=== PATIENT | female | born 1955 ===

== ENCOUNTER → 2016-07-25 | Outpatient (REF) ==
[2016-07-25 16:58] LABS: ANION GAP 13.8 MEQ/L (3-15); CALCULATED IONIZED CALCIUM 4.4 mg/dL (3.8-4.6); TOTAL PROTEIN 7.2 g/dL (6.4-8.5)
[2016-07-25 17:17] LABS: MEAN CORPUSCULAR HEMOGLOBIN 30.4 PG (26.0-34.0); MEAN CORPUSCULAR HGB CONC 33.2 g/dL (31.0-37.0); MEAN CORPUSCULAR VOLUME 92 FL (80-100); MEAN PLATELET VOLUME 13.9 FL (6.0-9.5); PLATELET COUNT 267 10^3uL (150-450); WHITE BLOOD COUNT 10.61 10^3uL (4.0-11.0)
[2016-07-25 17:32] LABS: BAND NEUTROPHILS % 3 % (0-6)
[2016-07-25 17:33] LABS: EOSINOPHILS % 7 % (0-4); LYMPHOCYTES # 3.1 #; MONOCYTES # 0.1 #; MONOCYTES % 1 % (3-11); RBC MORPH NORMAL (NORMAL); SEGMENTED NEUTROPHILS % 56 % (51-67); TOTAL CELLS COUNTED 100
== END ==
LOC: LAB 16:36
PROVIDERS: ATTEND Family Medicine
DX: G54.6 Phantom limb syndrome with pain (principal); E11.9 Type 2 diabetes mellitus without complications; I10 Essential (primary) hypertension
CPT/HCPCS: 80053; 80061; 82043; 83036; 85007; 85027